=== PATIENT | male | born 1960 | race Caucasian/White ===

== ENCOUNTER → 2020-08-17 10:35 | Outpatient (CLI) | payer OTHER, SELFPAY ==
--- NOTE | 2020-08-17 10:44 | RAD_ITS ---
CLINICAL HISTORY: Male, 60 years old. Painful prosthetic right shoulder joint. PROCEDURE: ARTHROGRAM - RIGHT SHOULDER CONSENT: The procedure as well as the benefits and possible complications including infection and bleeding were explained to the patient. Informed consent was obtained. FLUOROSCOPY TIME (if supplied): (35 seconds) minutes/seconds Aspiration: 15 cc of sheela-colored fluid Number of images obtained: 1 TECHNIQUE: (All elements of maximal sterile barrier technique followed, including US elements as applicable) The patient was in the supine position. The overlying skin was prepped and draped in the usual sterile fashion. Following ANESTHETIC APPLICATION AND UNDER DIRECT FLUOROSCOPIC GUIDANCE, A 22-GAUGE SPINAL NEEDLE WAS PLACED INTO THE SHOULDER JOINT. 15 CC OF SHEELA-COLORED FLUID WAS ASPIRATED. RAD/Inj/Asp Presley Jt Should/Hip/Knee IMPRESSION: Successful right shoulder aspiration. Electronically Signed: Sarbjit Ying, at 12:27 EST , Service support ,
[2020-08-17 12:40] LABS: Body Fluid QC Type(s) BF6Q; CRYSTALS, BODY FLUID See PATH REV; Source- Body Fluid SYNOVIAL
[2020-08-20 13:38] LABS: Pathologist Review Reviewed
== END ==
PROVIDERS: PCP Family Medicine
DX: T84.84XA Pain due to internal orthopedic prosthetic devices, implants and grafts, initial encounter (principal)
CPT/HCPCS: 20610; 77002; 87015; 87070; 87075; 87101; 87116; 87205; 87206; 89060

== ENCOUNTER → 2020-08-21 09:00 | Outpatient (CLI) | payer OTHER, SELFPAY | PROVIDERS: PCP Family Medicine; Referring Provider Family Medicine; Visit Provider Family Medicine | DX: Z03.818 Encounter for observation for suspected exposure to other biological agents ruled out (principal) | CPT/HCPCS: 87635; C9803; U0005; U0003 ==

== ENCOUNTER 2020-10-12 14:44 | Emergency (ER) | payer OTHER, SELFPAY ==
[2020-10-12 14:45] VITALS: BP 150/107; PULSE 79; RESP 16; TEMP 36.1; O2SAT 97; BMI 30.2
--- NOTE | 2020-10-12 15:04 | EKG12_ITS ---
Test Reason : AB LABS Blood Pressure : / mmHG Vent. Rate : 080 BPM Atrial Rate : 080 BPM P-R Int : 334 ms QRS Dur : 106 ms QT Int : 356 ms P-R-T Axes : 051 -48 057 degrees QTc Int : 410 ms Sinus rhythm with 1st degree A-V block with occasional Premature ventricular complexes Left anterior fascicular block Abnormal ECG Poor R wave progression Confirmed by LESLEY ARORA, PERLA ([id number]), news videotape editor TRISH AKINS ([id number]) on 10/16/2020 12:29:22 PM Referred By: JEREL Confirmed By:PERLA SUTTON MD
--- NOTE | 2020-10-12 15:06 | ED.DCSUM_ITS ---
History of Present Illness Chief Complaint: Abn Labs Detail of Chief Complaint: abnormal cardiac event monitor Informant: Patient, Significant Other, PCP Onset: - - this past month for 2 weeks, ending on Oct 04 Narrative: In August of this year, patient had shoulder surgery because of hardware infection in [place], and since then has been on IV antibiotics through a PICC with limited ability with regards to his right shoulder. While he was in the operating room, apparently he had some episodes of AV block, and so in follow-up locally with his PCP Dr. Hernandez, a 2-week event monitor was placed on him, ending on October 04 which was about 1.5 weeks ago. Today, the report was given to his PCP showing 82 episodes of third-degree AV block, one episode of Wenckebach, frequent PVCs with occasional ventricular bigeminy and ventricular trigeminy, in addition to one episode of ventricular tachycardia for approximately 4 beats. In discussing with the patient during that time period, he had very little symptomatology. He states there was one time he was dyspneic with very little exertion, it eventually settled down with rest, he had no lightheadedness, near syncope, or syncopal episodes at all. No chest discomfort. He had a couple episodes of feeling an occasional PVC which he does frequently, he describes as a skip and a thump but it has never made him feel lightheaded or pass out. He denies anything other than this latter symptom since he turned to the event monitor in. He was sent to the emergency department given the high degree of AV blockade seen on the report today. The patient had a remote cardiac stress test that was negative, and no other cardiac history. - Past Medical History (1) Hypertension Status: Chronic Past Medical History - Allergies and Home Meds Allergies/Adverse Reactions: Allergies naproxen Allergy (Verified 10/12/20 14:47) Hives meloxicam Adverse Reaction (Verified 10/12/20 14:47) Hives Primary Care Physician: Arslan Hernandez MD [Primary Care Provider] - Past Medical History: - - Right shoulder infection with orthopedic hardware removal Surgical History: - - Several surgeries on right shoulder Lives: Spouse/ Significant Other Smoking Status: Former smoker Review of Systems General: Denies: Chills, Fever, Sweats Eyes: Denies: Visual changes - bilaterally, Diplopia ENT: Denies: Bilateral ear pain, Rhinorrhea, Sore throat Cardiovascular: Reports: Palpitations - See HPI. Denies: Chest pain, Heart racing Respiratory: Reports: Dyspnea on exertion - 1 episode several weeks ago see HPI. Denies: Dyspnea, Cough, Orthopnea, Paroxysmal nocturnal dyspnea Gastrointestinal: Denies: Abdominal pain, Nausea, Vomiting, Diarrhea, Melena, Hematochezia Genitourinary: Denies: Dysuria, Hematuria, Frequency Musculoskeletal: Reports: Extremity Pain - Shoulder pain with movement of his right upper extremity. Denies: Back pain, Swelling Skin: Denies: Rash, Wounds Neurological: Denies: Headache, Weakness, Numbness Physical Exam Vital Signs/Narrative: Vital Signs Temp Pulse Resp BP Pulse Ox 10/12/20 14:45 96.9 F L 79 16 150/107 H 97 Inital Vital Signs reviewed: Yes General: Well nourished, Well developed, No Acute Distress Head: Normocephalic, Atraumatic Eyes: Perrl, EOMI ENT: Moist mucous membranes, No rhinorrhea Neck: Supple, Nontender, No JVD Cardiovascular: Regular rate, Regular rhythm - With occasional irregularity correlating with PVCs on monitor, No murmurs, Normal S1, Normal S2. Negative for: Tachycardia Respiratory: No distress, CTA bilaterally, Chest nontender Abdomen: Soft, Nontender, Nondistended, Normal bowel sounds Back: Nontender, Normal Inspection Extremities: Nontender, No edema, - - Left upper extremity PICC site benign Skin: Normal color, No rash, No Trauma Neurological: Alert, Oriented x3, Cranial nerves II-XII grossly intact, Normal Strength, Normal Sensation Psychological: Normal affect, Normal Mood Diagnostic/Tx/Re-eval Laboratory Results 10/12/20 10/12/20 15:30 15:30 WBC 7.5 RBC 5.40 Hgb 15.2 Hct 45.8 MCV 84.8 MCH 28.1 MCHC 33.2 RDW Std Deviation 39.4 RDW Coeff of Ora 12.8 Plt Count 268 MPV 9.6 Immature Gran % (Auto) 0.300 Neut % (Auto) 66.1 Lymph % (Auto) 24.4 Mchenry % (Auto) 6.7 Eos % (Auto) 2.0 Baso % (Auto) 0.5 Absolute Neuts (auto) 5.0 Absolute Lymphs (auto) 1.83 Nucleated RBC % 0 Sodium 139 Potassium 3.8 Chloride 107 Carbon Dioxide 25.0 Anion Gap 7 BUN 13 Creatinine 0.78 Estim Creat Clear Calc 99.45 Est GFR (MDRD) Af Amer 130 Est GFR (MDRD) Non-Af 107 BUN/Creatinine Ratio 16.6 Glucose 90 Calcium 9.5 Troponin I < 0.015 - Rhythm Strip Rhythm Strip: Sinus Rhythm Rate: 80 Ectopy: PVC(s) - EKG Initial EKG Interpretation: Sinus Rhythm, No Acute Injury Pattern, AV Block - 1st deg Prior: No Prior - Medical Decision Making Other than ventricular ectopy, patient remained stable without any acute symptoms or major telemetry events while in the emergency department. I was able to get the report from the event monitor [employer] that was sent to the patient's PCP confirming these findings. Discussed with cardiology Dr. Kaba after blood work is unremarkable as above. Although his colleague puts pacemakers in, this is not a straightforward case and is complicated by the presence of a PICC, IV antibiotics, and he thinks since the patient will need further work-up anyway he would benefit from being transferred to a higher level of care where there is EP cardiology. Patient is in the [facility] system, they prefer to go to [facility] which is also in that system and is closer than [place], discussed with EP cardiology there who agrees that this would be an appropriate transfer and they have the capacity to care for him at this time. Discussed with internal medicine for acceptance. ED Disposition - Plan for ED Patient: Disposition: [facility] Diagnosis: Intermittent complete atrioventricular block Referrals: Arslan Hernandez MD [Primary Care Provider] -
[2020-10-12 15:58] LABS: Anion Gap 7 (5-15); BUN 13 mg/dL (7-18); BUN/Creat Ratio 16.6 RATIO (10-20); Calcium,Total 9.5 mg/dL (8.5-10.1); Chloride 107 mmol/L (98-107); Creatinine, Serum 0.78 mg/dL (0.70-1.30); EST Glomerular Filtration Rate 107 mL/min (>60); Est Glom Filt Rate - Afr Amer 130 mL/min (>60); Estimated Creatinine Clearance 99.45 ml/min; Glucose 90 mg/dL (74-106); Potassium 3.8 mmol/L (3.5-5.1); Sodium Level 139 mmol/L (136-145)
[2020-10-12 16:31] LABS: Absolute Lymphocyte Count 1.83 X10^3/uL (0.83-4.51); Basophil# 0.04 X10^3/uL; Basophil% 0.5 % (0-1); Eosinophil# 0.15 X10^3/uL; Hematocrit 45.8 % (40-54); Hemoglobin 15.2 g/dL (13.0-16.5); Lymphocyte # 1.83 X10^3/ul (4.0); Lymphocyte % 24.4 % (19-41); Mean Corp Hgb Conc 33.2 g/dL (32-36); Mean Corpuscular Hgb 28.1 pg (27.0-32.0); Mean Corpuscular Volume 84.8 fL (80-94); Mean Platelet Vol. 9.6 fl (6.2-12.0); Monocyte% 6.7 % (0-10); NRBC Flagged by Analyzer 0 % (0-5); Neutrophil # 4.95 X10^3/uL (2.7-7.7); Neutrophil % 66.1 % (47-70); Platelet Count 268 K/mm3 (150-450); RBC Distribution Width CV 12.8 % (11.6-14.6); RBC Distribution Width SD 39.4 fl (35.1-43.9); White Blood Count 7.5 K/mm3 (4.4-11.0)
--- NOTE | 2020-10-12 17:02 | NURSING ---
DR BOOTH FOR DR BRICE
[2020-10-12 17:13] VITALS: BP 147/100; PULSE 79; RESP 12; O2SAT 96
[2020-10-12 17:24] VITALS: BP 136/98; PULSE 82; RESP 16; O2SAT 96
== END 2020-10-12 18:54 | disposition short-term general hospital (02) ==
PROVIDERS: Emergency Provider Emergency Medicine; PCP Family Medicine
DX: I44.2 Atrioventricular block, complete (principal); I10 Essential (primary) hypertension; Z87.891 Personal history of nicotine dependence
CPT/HCPCS: 80048; 84484; 85025; 93005; 99285